=== PATIENT | male | born 1940 | race Caucasian/White ===

== ENCOUNTER 2018-11-26 14:34 | Inpatient (IN) | payer BC, OTHER ==
[~2018-11-26] VITALS: Ht 170.2 cm; Wt 82.6 kg
[2018-11-26] MEDS ORDERED: INSU100V9 SQ (17:46)
[2018-11-26] MEDS ORDERED: METF1000 PO (17:49)
[2018-11-26] MEDS ORDERED: INSU100V7 IJ (17:49)
[2018-11-26] MEDS ORDERED: DEXT350P PO (17:52)
[2018-11-26] MEDS ORDERED: ENAL20TA PO (17:52)
[2018-11-26] MEDS ORDERED: HYDR12.55 PO (17:52)
[2018-11-26 17:53] VITALS: BP_SYST 148
[2018-11-26 19:00] VITALS: BP_SYST 145
[2018-11-26 20:00] VITALS: BP_SYST 145
[2018-11-26] MEDS ORDERED: MORPHINE 4 MG/ML INJ. SYRINGE IVP ONE (20:45)
[2018-11-26] MEDS ORDERED: ONDANSETRON HCL 4 MG/2 ML VIAL IVP PRN (23:00)
[2018-11-26] MEDS ORDERED: ACETAMINOPHEN 325 MG TABLET PO PRN (23:00)
[2018-11-26] MEDS ORDERED: ALBUTEROL SULFATE 0.083% 2.5 MG/3 ML VIAL.NEB INH PRN (23:00)
[2018-11-26] MEDS ORDERED: MORPHINE 4 MG/ML INJ. SYRINGE IVP PRN (23:00)
[2018-11-26] MEDS ORDERED: HYDROcodone/ACETAMIN 5-325 MG TAB (NORCO/ VICODIN) PO PRN (23:00)
[2018-11-26] MEDS: NACL 0.9% 1,000 ML IV SCH (23:46)
[2018-11-27 00:24] VITALS: BP_SYST 120
[2018-11-27 06:15] LABS: ANION GAP 2 (5-15); CALCIUM 8.3 mg/dL (8.4-11.0); CHLORIDE 106 mmol/L (98-107); CREATININE 0.78 mg/dL (0.55-1.30); GLUCOSE 253 mg/dL (70-99); SODIUM SERUM 138 mmol/L (136-145); UREA NITROGEN, BLOOD 14 mg/dL (8-21)
[2018-11-27 06:24] LABS: ALANINE AMINOTRANSFERASE 24 U/L (12-78); ALBUMIN 2.8 g/dL (3.4-4.8); ASPARTATE AMINOTRANSFERASE 20 U/L (10-37); TOTAL BILIRUBIN 0.7 mg/dL (0.0-1.0)
[2018-11-27] MEDS: INSULIN REGULAR, HUMAN 100 UNITS/ML, 10 ML VIAL (novoLIN R) SUBCUT PRN ×4 (06:39→20:12)
[2018-11-27 07:28] VITALS: BP_SYST 157
[2018-11-27 08:00] VITALS: BP_SYST 157
[2018-11-27 08:23] LABS: HEMOGLOBIN 12.5 g/dL (14.0-18.0); RED BLOOD CELL COUNT(AUTO) 4.68 MIL/uL (4.2-6.2)
[2018-11-27 08:24] LABS: BASOPHILS % (AUTO) 0.5 % (0.0-2.0); EOSINOPHILS % (AUTO) 5.4 % (0.0-4.0); HEMATOCRIT 38.2 % (36-54); LYMPHOCYTES % (AUTO) 33.4 % (20.5-51.5); MEAN CORPUSCULAR HEMOGLOBIN 27 pg (27-31); MEAN CORPUSCULAR HGB CONC 33 % (32-36); MEAN CORPUSCULAR VOLUME 82 fL (79.0-98.0); MONOCYTES # (AUTO) 0.7 K/uL (0.0-1.0); MONOCYTES % (AUTO) 11.4 % (1.7-9.3); NEUTROPHILS # (AUTO) 2.9 K/uL (1.8-7.7); NEUTROPHILS % (AUTO) 49.3 % (40.0-70.0); PLATELET COUNT (AUTO) 227 K/uL (130-430); RED CELL DISTRIBUTION WIDTH 14.9 % (9.0-15.0)
[2018-11-27 08:25] LABS: EOSINOPHILS # (AUTO) 0.3 K/uL (0.0-0.4)
[2018-11-27] MEDS: NACL 0.9% 1,000 ML IV SCH ×2 (11:39→23:05)
[2018-11-27 11:52] VITALS: BP_SYST 147
[2018-11-27 15:21] VITALS: BP_SYST 130
[2018-11-27] MEDS ORDERED: HYDROCHLOROTHIAZIDE 12.5 MG CAPSULE (HCTZ) PO ONE (16:15)
[2018-11-27] MEDS: metFORMIN HCL 500 MG TABLET PO SCH (17:13)
[2018-11-28 01:25] VITALS: BP_SYST 150
[2018-11-28] MEDS: INSULIN REGULAR, HUMAN 100 UNITS/ML, 10 ML VIAL (novoLIN R) SUBCUT PRN ×4 (06:04→20:21)
[2018-11-28 08:08] VITALS: BP_SYST 156
[2018-11-28] MEDS: ENALAPRIL MALEATE 10 MG TABLET (VASOTEC) PO SCH (08:24)
[2018-11-28] MEDS: metFORMIN HCL 500 MG TABLET PO SCH ×2 (08:24→17:12)
[2018-11-28] MEDS: HYDROCHLOROTHIAZIDE 12.5 MG CAPSULE (HCTZ) PO SCH (08:25)
[2018-11-28 11:24] VITALS: BP_SYST 150
[2018-11-28] MEDS: NACL 0.9% 1,000 ML IV SCH ×3 (11:24→20:25)
[2018-11-28 15:34] VITALS: BP_SYST 142
[2018-11-28 19:32] VITALS: BP_SYST 144
[2018-11-29 00:20] VITALS: BP_SYST 142
[2018-11-29] MEDS: INSULIN REGULAR, HUMAN 100 UNITS/ML, 10 ML VIAL (novoLIN R) SUBCUT PRN ×3 (05:54→17:47)
[2018-11-29] MEDS: NACL 0.9% 1,000 ML IV SCH (05:57)
[2018-11-29 08:00] VITALS: BP_SYST 122
[2018-11-29] MEDS: metFORMIN HCL 500 MG TABLET PO SCH ×2 (08:54→17:51)
[2018-11-29] MEDS: HYDROCHLOROTHIAZIDE 12.5 MG CAPSULE (HCTZ) PO SCH (08:54)
[2018-11-29] MEDS: ENALAPRIL MALEATE 10 MG TABLET (VASOTEC) PO SCH (08:55)
[2018-11-29] MEDS ORDERED: GADOPENTETATE DIMEGLUMINE 15 ML VIAL IV ONE (12:22)
[2018-11-29 12:48] VITALS: BP_SYST 142
[2018-11-29 16:58] VITALS: BP_SYST 125
[2018-11-29 19:51] VITALS: BP_SYST 137
== END 2018-11-29 20:19 | disposition home or self-care (01) | DRG 74 ==
LOC: SMU 17:14 → STU 17:19
PROVIDERS: ADMIT Internal Medicine Hospice and Palliative Medicine; ATTEND Internal Medicine Hospice and Palliative Medicine
DX: G90.8 Other disorders of autonomic nervous system (principal); I10 Essential (primary) hypertension; F17.210 Nicotine dependence, cigarettes, uncomplicated; G62.9 Polyneuropathy, unspecified; W19.XXXA Unspecified fall, initial encounter; R27.0 Ataxia, unspecified; E11.65 Type 2 diabetes mellitus with hyperglycemia; Y93.89 Activity, other specified; Y92.89 Other specified places as the place of occurrence of the external cause; Y99.8 Other external cause status; Z83.3 Family history of diabetes mellitus; Z90.49 Acquired absence of other specified parts of digestive tract; Z98.49 Cataract extraction status, unspecified eye
CPT/HCPCS: 36415; 70551; 71045; 80053; 82962; 84484; 85025; 93306; 93880; 97163; A9579; G0378; J1815; J2270; J7030